=== PATIENT | female | born 1960 | race African-American/Black ===

== ENCOUNTER 2018-12-18 22:46 | Emergency (ER) | payer SELFPAY ==
[2018-12-18] MEDS ORDERED: Famotidine 20 MG Tab PO ONE (23:50)
[2018-12-18] MEDS ORDERED: Alum Hydrox/Mag Hydrox/Simeth 30 ML, Lidocaine 2% 15 ML PO ONE ×2 (23:50)
--- NOTE | 2018-12-19 | EDM.PDOC ---
ED HPI GENERAL MEDICAL PROBLEM - General Chief Complaint: Abdominal Pain Stated Complaint: ABDOMINAL PAIN VOMITING Time Seen by Provider: 12/18/18 22:55 Source of Information: Reports: Patient History Limitations: Reports: No Limitations - History of Present Illness INITIAL COMMENTS - FREE TEXT/NARRATIVE: 58 y/o F with abdominal pain x approx 5 days. RUQ/epigastric area. Pain has been fairly constant but waxing and waning. Mild now, but was more severe when she decided to come to the ED. Feels like a cramping pain. Sometimes but not always provoked by food. She has had a few episodes of vomiting over the past few days. No diarrhea. No fever. No cough/SOB. No additional recent illness. She is visiting from [place] and plans to be here for another 2 weeks. 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: , Other (See Below) Other DRY FOLDER CLOTH History: Ovarian cyst Endocrine/Metabolic History: Reports: Diabetes, Type II - Past Surgical History Female Surgical History: Reports: Tubal Ligation Social & Family History - Tobacco Use Smoking Status *Q: Never Smoker - Recreational Drug Use Recreational Drug Use: No ED ROS GENERAL - Review of Systems Review Of Systems: See Below Constitutional: Denies: Fever HEENT: Reports: No Symptoms Respiratory: Denies: Shortness of Breath Cardiovascular: Denies: Chest Pain Endocrine: Reports: No Symptoms GI/Abdominal: Reports: Abdominal Pain : Reports: No Symptoms Musculoskeletal: Reports: No Symptoms Skin: Reports: No Symptoms Neurological: Reports: No Symptoms ED EXAM, GI/ABD - Physical Exam Exam: See Below Exam Limited By: No Limitations General Appearance: Alert, WD/WN, No Apparent Distress Eyes: Bilateral: Normal Appearance Ears: Normal External Exam Nose: Normal Inspection Throat/Mouth: Normal Inspection, Normal Oropharynx, Normal Voice Head: Atraumatic, Normocephalic Neck: Normal Inspection Respiratory/Chest: No Respiratory Distress, Lungs Clear, Normal Breath Sounds, Chest Non-Tender Cardiovascular: Regular Rate, Rhythm GI/Abdominal Exam: Normal Bowel Sounds, Soft, No Distention, Other (+RUQ and epigastric TTP, no rebound/guarding) Neurological: Alert, Oriented, Normal Cognition Psychiatric: Normal Affect, Normal Mood Skin Exam: Warm, Dry, Intact, Normal Color, No Rash Course - Vital Signs Last Recorded V/S: Last Vital Signs Temp 36.6 C 12/18/18 22:53 Pulse 80 12/18/18 22:53 Resp 16 12/18/18 22:53 BP 148/84 H 12/18/18 22:53 Pulse Ox 100 12/18/18 22:53 - Orders/Labs/Meds Orders: Active Orders 24 hr Category Date Time Status Peripheral IV Care [RC] . DIRECTED Care 12/18/18 23:03 Active Peripheral IV Care [RC] . DIRECTED Care 12/18/18 23:03 Active Peripheral IV Insertion Adult [OM.PC] Routine Oth 12/18/18 23:03 Ordered Labs: Laboratory Tests 12/19/18 12/19/18 12/19/18 Range/Units 00:01 00:01 00:30 WBC 8.25 (3.98-10.04) K/mm3 RBC 4.95 (3.98-5.22) M/mm3 Hgb 14.0 (11.2-15.7) gm/dl Hct 40.0 (34.1-44.9) % MCV 80.8 (79.4-94.8) fl MCH 28.3 (25.6-32.2) pg MCHC 35.0 (32.2-35.5) g/dl RDW Std Deviation 41.5 (36.4-46.3) fL Plt Count 285 (182-369) K/mm3 MPV 10.8 (9.4-12.3) fl Neut % (Auto) 75.1 H (34.0-71.1) % Lymph % (Auto) 16.1 L (19.3-51.7) % [place] % (Auto) 8.0 (4.7-12.5) % Eos % (Auto) 0.6 L (0.7-5.8) Baso % (Auto) 0.2 (0.1-1.2) % Neut # (Auto) 6.19 H (1.56-6.13) K/mm3 Lymph # (Auto) 1.33 (1.18-3.74) K/mm3 [place] # (Auto) 0.66 H (0.24-0.36) K/mm3 Eos # (Auto) 0.05 (0.04-0.36) K/mm3 Baso # (Auto) 0.02 (0.01-0.08) K/mm3 Sodium 134 L (136-145) mEq/L Potassium 4.4 (3.5-5.1) mEq/L Chloride 98 (98-107) mEq/L Carbon Dioxide 26 (21-32) mEq/L Anion Gap 14.4 (5-15) BUN 11 (7-18) mg/dL Creatinine 0.9 (0.55-1.02) mg/dL Est Cr Clr Drug Dosing 65.45 mL/min Estimated GFR (MDRD) > 60 (>60) mL/min BUN/Creatinine Ratio 12.2 L (14-18) Glucose 377 H (74-106) mg/dL Calcium 10.1 (8.5-10.1) mg/dL Total Bilirubin 0.4 (0.2-1.0) mg/dL AST 10 L (15-37) U/L ALT 23 (14-59) U/L Alkaline Phosphatase 135 H (46-116) U/L Total Protein 8.7 H (6.4-8.2) g/dl Albumin 3.8 (3.4-5.0) g/dl Globulin 4.9 gm/dL Albumin/Globulin Ratio 0.8 L (1-2) Lipase 211 (73-393) U/L Urine Color Yellow (Yellow) Urine Appearance Clear (Clear) Urine pH 5.5 (5.0-8.0) Ur Specific [place] 1.020 (1.005-1.030) Urine Protein 1+ H (Negative) Urine Glucose (UA) 2+ H (Negative) Urine Ketones 3+ H (Negative) Urine Occult Blood Negative (Negative) Urine Nitrite Negative (Negative) Urine Bilirubin Negative (Negative) Urine Urobilinogen 0.2 (0.2-1.0) Ur Leukocyte Esterase Negative (Negative) Urine RBC 0-5 (0-5) /hpf Urine WBC 0-5 (0-5) /hpf Ur Epithelial Cells 0-5 (0-5) /hpf Urine Bacteria Rare (FEW) /hpf Urine Mucus Not seen (FEW) /hpf Meds: Medications Discontinued Medications Generic Name Dose Route Start Last Admin Trade Name Freq PRN Reason Stop Dose Admin Al Hydroxide/Mg Hydroxide 30 0 ml 12/18/18 23:50 12/19/18 00:07 ml/ Lidocaine HCl 15 ml PO 12/18/18 23:51 45 ml ONETIME ONE Administration Famotidine 40 mg 12/18/18 23:50 12/19/18 00:06 Pepcid PO 12/18/18 23:51 40 mg ONETIME ONE Administration Famotidine 20 mg 12/19/18 00:20 12/19/18 00:29 Pepcid IVPUSH 12/19/18 00:21 20 mg ONETIME ONE Administration Sodium Chloride 1,000 mls @ 1,000 mls/hr 12/19/18 00:20 12/19/18 00:28 Normal Saline IV 12/19/18 01:19 1,000 mls/hr ONETIME ONE Administration Ketorolac Tromethamine 30 mg 12/19/18 00:20 12/19/18 00:30 Toradol IVPUSH 12/19/18 00:21 30 mg ONETIME ONE Administration Ondansetron HCl 4 mg 12/19/18 00:20 12/19/18 00:29 Zofran IVPUSH 12/19/18 00:21 4 mg ONETIME ONE Administration Sodium Chloride 10 ml 12/18/18 23:03 12/19/18 00:29 Saline Flush FLUSH 10 ml ASDIRECTED PRN Administration Keep Vein Open - Re-Assessments/Exams Free Text/Narrative Re-Assessment/Exam: 12/19/18 00:21 Vomited after being given oral famotidine and gi cocktail, will give IV meds and reassess. 12/19/18 00:58 Feels much better after IV fluid, zofran, and famotidine. Labs show hyperglycemia with glucose 370. Bicarb/anion gap normal. Remaining electrolytes and LFT's normal. No UTI. She explained she's been taking her metformin but is out of two additional antihyperglycemics she normally takes - pioglitazone 30mg daily, and "gliclazide 60mg" daily. I will refill those for her as she is going to be here for 2 more weeks before returning to [place]. Discussed ED return precautions. Departure - Departure Time of Disposition: 00:59 Disposition: Home, Self-Care 01 Clinical Impression: Epigastric pain, Hyperglycemia Vomiting Qualifiers: Vomiting type: unspecified Vomiting Intractability: non-intractable Nausea presence: with nausea Qualified Code(s): R11.2 - Nausea with vomiting, unspecified - Discharge Information Prescriptions: Famotidine 20 mg PO DAILY #30 tablet glipiZIDE [Glipizide ER] 2.5 mg PO DAILY #30 tab.er.24 Pioglitazone [Actos] 30 mg PO DAILY #30 tab Instructions: Hyperglycemia, Vomiting, Adult Referrals: PCP,Not In Area [Primary Care Provider] - Forms: ED Department Discharge Additional Instructions: 1. Take your usual medications as prescribed for your diabetes. Gliclazide is not available in the [place] so I prescribed you Glipizide which works in a similar way. 2. Take famotidine as prescribed to reduce stomach acid. Take tums or maalox with meals. 3. Return to the ED if you have severe pain, vomiting without keeping liquids down, or other concerning symptoms. - My Orders Last 24 Hours: My Active Orders 12/18/18 23:03 Peripheral IV Care [RC] . DIRECTED Peripheral IV Care [RC] . DIRECTED Peripheral IV Insertion Adult [OM.PC] Routine - Assessment/Plan Last 24 Hours: My Active Orders 12/18/18 23:03 Peripheral IV Care [RC] . DIRECTED Peripheral IV Care [RC] . DIRECTED Peripheral IV Insertion Adult [OM.PC] Routine
[2018-12-19] MEDS: Sodium Chloride 0.9% 10 ML Syringe FLUSH PRN ×2 (00:08→00:29)
[2018-12-19] MEDS ORDERED: Famotidine 20 MG/2 ML SDV IVPUSH ONE (00:20)
[2018-12-19] MEDS ORDERED: Ondansetron 4 MG/2 ML SDV IVPUSH ONE (00:20)
[2018-12-19] MEDS ORDERED: Ketorolac 30 MG/ML SDV IVPUSH ONE (00:20)
[2018-12-19] MEDS ORDERED: Sodium Chloride 0.9% 1,000 ML IV ONE (00:20)
== END 2018-12-19 01:19 | disposition home or self-care (01) ==
LOC: JD.ED 22:46
DX: R10.13 Epigastric pain (principal); R10.11 Right upper quadrant pain; E11.65 Type 2 diabetes mellitus with hyperglycemia; R11.2 Nausea with vomiting, unspecified; Z79.84 Long term (current) use of oral hypoglycemic drugs
CPT/HCPCS: 36415; 80053; 81001; 83690; 85025; 96361; 96374; 96375; 99284; A9270; J1885; J2405; J3490; J7040